=== PATIENT | female | born 1985 | race Caucasian/White ===

== ENCOUNTER 2021-12-22 10:11 | Outpatient (CLI) | payer OTHER, SELFPAY | END 2021-12-22 11:08 | disposition home or self-care (01) | LOC: LABOR 10:33 → OB 12-23 12:42 | PROVIDERS: PCP Student in an Organized Health Care Education/Training Program; Referring Provider Student in an Organized Health Care Education/Training Program; Visit Provider Student in an Organized Health Care Education/Training Program | DX: O48.0 Post-term pregnancy (principal); Z3A.40 40 weeks gestation of pregnancy | CPT/HCPCS: 59025; G0378; G0379 ==

== ENCOUNTER 2021-12-25 13:57 | Outpatient (CLI) | payer OTHER, SELFPAY | END 2021-12-25 14:45 | disposition home or self-care (01) | LOC: LABOR 14:25 → OB 12-26 09:38 | PROVIDERS: PCP Student in an Organized Health Care Education/Training Program; Referring Provider Student in an Organized Health Care Education/Training Program; Visit Provider Student in an Organized Health Care Education/Training Program | DX: O48.0 Post-term pregnancy (principal); Z3A.40 40 weeks gestation of pregnancy | CPT/HCPCS: 59025; G0378; G0379 ==

== ENCOUNTER → 2021-12-26 07:19 | Outpatient (CLI) | payer OTHER, SELFPAY ==
--- NOTE | 2021-12-26 | DI.US.S_ITS ---
PROCEDURE: US OB LIMITED INDICATIONS: POST DATES; BRADY OUTSIDE/PRIOR DATING DATA: Estimated date of delivery (MARYAN): 12/22/2021. TECHNIQUE: Real-time scanning was performed of the fetus, with image documentation. COMPARISON: None. FINDINGS: A single living intrauterine gestation is present. Presentation: Vertex. Placenta: Placental position is right fundal, without previa. Amniotic fluid index: No fluid visualized. Single deepest vertical pocket is not visualized. heart rate: 132 beats per minute. Maternal cervical canal: Not visualized. Clinically estimated gestational age: 40 weeks 4 days IMPRESSION: 1. Hill living intrauterine at 40 weeks 4 days. Vertex position. 2. No amniotic fluid is seen. Normal placenta. Results were called to Mirna Richards at 8:06 a.m. by the lithographic plate maker apprentice. Dictated by: Elgin Torrez M.D. on 12/26/2021 at 10:33 Approved by: Elgin Torrez M.D. on 12/26/2021 at 10:36
== END ==
PROVIDERS: PCP Student in an Organized Health Care Education/Training Program; Referring Provider Student in an Organized Health Care Education/Training Program; Visit Provider Student in an Organized Health Care Education/Training Program
DX: O48.0 Post-term pregnancy (principal); Z3A.40 40 weeks gestation of pregnancy
CPT/HCPCS: 76815

== ENCOUNTER 2021-12-26 11:36 | Outpatient (CLI) | payer OTHER, SELFPAY | END 2021-12-26 12:25 | disposition home or self-care (01) | LOC: LABOR 12:23 → OB 12-29 12:19 | PROVIDERS: PCP Student in an Organized Health Care Education/Training Program; Referring Provider Student in an Organized Health Care Education/Training Program; Visit Provider Student in an Organized Health Care Education/Training Program | DX: O48.0 Post-term pregnancy (principal); Z3A.40 40 weeks gestation of pregnancy | CPT/HCPCS: 59025; G0378; G0379 ==

== ENCOUNTER 2021-12-26 19:30 | Observation (INO) | payer OTHER, SELFPAY ==
--- NOTE | 2021-12-26 19:42 | P.TNLD_ITS ---
Visit Information Visit Information Date of evaluation: 12/26/21 Primary OB Provider: Neda Garcia Reason for Evaluation: Yes other Comments/Additional reasons for admission: Agueda Durán is a 36 year old at 40w4d with MARYAN of 12/22/21 per first trimester ultrasound. She presents with severe oligohydramnios with no fluid noted on her post-dates US today. Her course has been uncomplicated. LABS/IMAGING: ABO O positive, antibody negative on 05/21/21. Rubella immune. Hepatitis-B surface antigen negative. HIV, HSV 1 and 2 negative. GC/chlamydia negative. RPR negative. Varicella titer positive. Pap smear reportedly normal /in 2019. Urine culture negative on 05/21/2021. Hemoglobin/hematocrit 11.8/35.5 on 05/21/2021. Repeat hemoglobin/hematocrit pending. 1 hour Glucola 136, 3 hour negative. GBS negative on 11/27/21. Dating US: 10w0d, normal Anatomy Scan: normal OBSTETRIC HISTORY: GYNECOLOGICAL HISTORY: None PAST MEDICAL HISTORY: Healthy PAST SURGICAL HISTORY: None FAMILY HISTORY: No history of congenital defects. 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 Lives in [place] with . Supportive relationship. Very excited about the baby.
--- NOTE | 2021-12-26 20:05 | PM.OBHP.1 ---
OB HPI Date/Time Date of admission: 12/26/21 Date Patient Seen: 12/26/21 Time Patient Seen: 19:00 History of Present Condition Chief complaint: Narrative: Agueda Durán is a 36 year old at 40w4d with MARYAN of 12/22/21 per first trimester ultrasound. She presents with severe oligohydramnios with no fluid noted on her post-dates US today. NST x2 this week have been reactive and reassuring. AmniSure today was negative. Her course has been uncomplicated. LABS/IMAGING: ABO O positive, antibody negative on 05/21/21. Rubella immune. Hepatitis-B surface antigen negative. HIV, HSV 1 and 2 negative. GC/chlamydia negative. RPR negative. Varicella titer positive. Pap smear reportedly normal /in 2019. Urine culture negative on 05/21/2021. Hemoglobin/hematocrit 11.8/35.5 on 05/21/2021. Repeat hemoglobin/hematocrit pending. 1 hour Glucola 136, 3 hour negative. GBS negative on 11/27/21. Dating US: 10w0d, normal Anatomy Scan: normal OBSTETRIC HISTORY: GYNECOLOGICAL HISTORY: None PAST MEDICAL HISTORY: Healthy PAST SURGICAL HISTORY: None FAMILY HISTORY: No history of congenital defects. 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 Lives in [place] with . Supportive relationship. Very excited about the baby. Review of Systems Review of Systems Narrative: All remaining ROS were reviewed and negative except as addressed. OB Exam Narrative Exam Narrative: General: NAD Skin: Color unremarkable, no rash nor lesions HEENT: Neck supple with midline trachea Lungs: CTAB Heart: Normal rate, and regular rhythm, S1, S2 normal, no murmur, click, rub or gallop Abdomen: Gravid, soft, non-tender Extremities: No clubbbing, no edema, no cyanosis Pelvis: Normal female external genitalia Presentation: vertex Cervix: 3/50/-3 Monitoring: Variability: Moderate Baseline: 130 Accelerations: Present Decelerations: Present x1 with good recovery Contractions: Every 3-7 minutes Strength: Moderate Assessment and Plan Assessment and Plan Assessment and Plan narrative: 1. IUP at 40w4d 2. 3. Postdates 4. Severe oligohydramnios Plan: Secondary to severe oligohydramnios, patient requires immediate induction. Unfortunately, there is not adequate nursing support to proceed with induction at our hospital. Dr. Villafana has been contacted at [facility] and has kindly agreed to accept patient in transfer of care. Patient understands need for transport due to staffing constraints. Questions answered, appropriate consents will be signed. Transportation will be via ground.
--- NOTE | 2021-12-26 20:15 | PM.OBDS.1 ---
Discharge Providers Provider Date of admission: 12/26/21 19:30 Discharge Date: 12/26/21 Primary care physician: Neda Garcia MD Discharge provider: Neda Garcia MD Summary Hospital Course Date Patient Seen: 12/26/21 Time Patient Seen: 20:15 Diagnoses: 1.? IUP at 40w4d 2.? 3.? Postdates 4.? Severe oligohydramnios Hospital Course: Patient has had an unremarkable hospital course. She has been on continuous monitoring throughout her stay. heart rate baseline in the 130s. Initially, baby had a deceleration that resolved with position change. Secondary to severe oligohydramnios, patient requires immediate induction.? Unfortunately, there is not adequate nursing support to proceed with induction at our hospital.? Dr. Villafana has been contacted at [facility] and has kindly agreed to accept patient in transfer of care.? Patient understands need for transport due to staffing constraints.? Questions answered, appropriate consents will be signed.? Transportation will be via ground. Greater than 75 minutes from 19:00 to 20:45 was spent [id number] with greater than 50% of the time directed towards stabilizing patient during critical care transport. Status at Discharge Cognitive/behavioral status at discharge: at baseline, oriented Functional status at discharge: independent ambulation Overall status at discharge: patient is back to baseline Time Spent with Patient Time attestation: Total time spent providing and/or coordinating discharge services: 75 minutes Objective Labs Result Diagrams: 12/26/21 19:55 Exam Narrative Exam Narrative: Exam Narrative: General: ? NAD Skin: ? Color unremarkable, no rash nor lesions HEENT:? Neck supple with midline trachea Lungs: ? CTAB Heart: ? Normal rate, and regular rhythm, S1, S2 normal, no murmur, click, rub or gallop Abdomen:? Gravid, soft, non-tender Extremities:? No clubbbing, no edema, no cyanosis Pelvis:? Normal female external genitalia Presentation: vertex Cervix:? 3/50/-3 Monitoring: Variability:? Moderate Baseline:? 130 Accelerations:? Present Decelerations:? Present x1 with good recovery Contractions:? Every 3-7 minutes Strength:? Moderate Discharge Plan Discharge Plan Patient Disposition: [facility] Other facility: [facility] Under care of provider: Dr. Ileana Villafana Discharge Health Status Multidrug resistant organism: No MDRO Precautions: [place] Diet/Activity/Treatments Diet: Clear Liquid Activity: Ambulate as tolerated. Discharge Data Primary Care Provider: Neda Garcia Attending Provider: Neda Garcia
[2021-12-26 20:20] LABS: Add Manual Diff / Slide Review NO; Basophils Absolute Auto 100 /uL (0-100); Basophils Percent Auto 0.5 % (0-2); Eosinophils Absolute Auto 200 /uL (0-450); Eosinophils Percent Auto 1.9 % (2-4); Hematocrit 33.2 % (36-46); Hemoglobin 10.7 g/dL (12.0-16.0); Lymphocytes Absolute Auto 3000 /uL (1100-4500); Mean Corpuscular HGB Conc 32.3 % (30-36); Mean Corpuscular Hemoglobin 27.5 PG (26-34); Mean Corpuscular Volume 85.1 fL (80-100); Monocytes Absolute Auto 800 /uL (0-900); Monocytes Percent Auto 6.4 % (3-14); Neutrophils Absolute Auto 7900 /uL (1500-7000); Neutrophils Percent Auto 66.2 % (50-75); Platelet Count 248 X10^3/uL (150-400); Red Cell Distribution Width 14.8 % (11.6-14.8); White Blood Cell Count 11.8 X10^3/uL (4.5-11.0)
[2021-12-26 20:36] LABS: COVID19 -Nasal RAPID Negative (Negative)
== END 2021-12-26 21:00 | disposition short-term general hospital (02) ==
PROVIDERS: Admitting Provider Student in an Organized Health Care Education/Training Program; PCP Student in an Organized Health Care Education/Training Program; Referring Provider Student in an Organized Health Care Education/Training Program; Visit Provider Student in an Organized Health Care Education/Training Program
DX: O41.03X0 Oligohydramnios, third trimester, not applicable or unspecified (principal); O48.0 Post-term pregnancy; Z3A.40 40 weeks gestation of pregnancy; Z20.822 Contact with and (suspected) exposure to COVID-19
CPT/HCPCS: 59025; 59050; 76815; 85025; 86850; 86900; 86901; 87635; C9803; G0378; G0379

== ENCOUNTER → 2022-11-30 11:45 | Outpatient (CLI) | payer OTHER, SELFPAY ==
--- NOTE | 2022-11-30 11:47 | DI.US.S_ITS ---
PROCEDURE: US PELVIC COMPLETE INDICATIONS: RULE OUT MISCARRIAGE TECHNIQUE: Real-time scanning was performed of the pelvic organs, with image documentation. Additional endovaginal scanning was necessary due to incomplete visualization of the adnexal and endometrial structures by transabdominal scanning. COMPARISON: None. FINDINGS: Uterus: Uterus is anteverted and normal in size at 6.1 x 3.9 x 3.8 cm. The myometrium is homogeneous. The endometrium measures 6.5 mm combined thickness. No intrauterine identified. Ovaries: The right ovary measures 2.8 x 1.7 x 2.7 cm, with a calculated ovarian volume of 6.6 cc. The left ovary measures 2.4 x 2.3 x 2.8 cm, with a calculated ovarian volume of 7.9 cc. The ovaries have a normal sonographic appearance. Less than 12 follicles can be seen in each ovary. No adnexal masses are seen. Other: No pathologic free abdominal or pelvic fluid. 1. IMPRESSION: No intra-or extrauterine is identified. Differential considerations would include spontaneous , early intrauterine gestation as well as occult ectopic ; however there are no secondary signs for such. Recommend clinical correlation with serial beta-hCGs and/or followup sonographic imaging if indicated. We strive to produce accurate, complete, and clear reports of imaging services. To assist us in improving patient care, this report was composed using standard report templates and voice recognition software. Therefore, it may contain abnormal punctuation, insertions and/or omissions. Occasional wrong-word or sound-alike substitutions may occur. Though we review the report and make efforts to correct it, we do recommend that the report be read carefully in proper context to recognize any text inaccuracies. Dictated by: Sandip Darden [facility] Interpreted: Houston Flores MD on 11/30/2022 at 12:40 Transcribed by: SHAYNE on 11/30/2022 at 12:42 Approved by: Houston Flores M.D. on 11/30/2022 at 13:58
== END ==
PROVIDERS: PCP Family Medicine; Referring Provider Family Medicine; Visit Provider Family Medicine
DX: O36.80X0 Pregnancy with inconclusive fetal viability, not applicable or unspecified (principal)
CPT/HCPCS: 76856

== ENCOUNTER → 2023-07-20 06:54 | Outpatient (CLI) | payer OTHER, SELFPAY ==
--- NOTE | 2023-07-20 | DI.US.S_ITS ---
PROCEDURE: US OB <= 14 WEEKS FETUS INDICATIONS: SPOTTING IN FIRST TRIMESTER OUTSIDE/PRIOR DATING DATA: Last menstrual period (LMP): 05/14/2023 LMP-based estimated date of delivery (MARYAN): 02/18/2024 First dating scan (date and location): 07/20/2023 TECHNIQUE: Real-time scanning was performed of the fetus and maternal pelvic organs, with image documentation. Endovaginal scanning was also performed to better visualize the fetus and maternal ovaries. COMPARISON: None. FINDINGS: Intrauterine gestational sac is seen with yolk sac and pole. [place]-rump length is 0.7 cm, compatible with an estimated gestational age of 6 weeks 4 days (estimated gestational age from LMP is 9 weeks 4 days). No cardiac motion is seen. Maternal organs: A right ovarian 2.6 cm corpus luteum cyst is noted. IMPRESSION: Intrauterine is seen with no cardiac motion, consistent with early failure. Approved by: Hamilton Luna M.D. on 07/20/2023 at 10:38
== END ==
PROVIDERS: PCP Family Medicine; Referring Provider Obstetrics & Gynecology; Visit Provider Obstetrics & Gynecology
DX: O20.0 Threatened abortion (principal)
CPT/HCPCS: 76801; 76817

== ENCOUNTER 2023-07-21 13:44 | Emergency (ER) | payer OTHER, SELFPAY ==
[2023-07-21] VITALS (14 sets, daily range): BP systolic 100–116; BP diastolic 55–66; PULSE 67–85; RESP 15–24; TEMP 36.8; O2SAT 97–100; BMI 27.3
--- NOTE | 2023-07-21 13:51 | DI.US.S_ITS ---
PROCEDURE: US OB <= 14 WEEKS FETUS INDICATIONS: VAGINAL BLEEDING OUTSIDE/PRIOR DATING DATA: Last menstrual period (LMP): 05/14/23. LMP-based estimated date of delivery (MARYAN): 02/18/2024. First dating scan (date and location): 07/20/2023 at . Estimated date of delivery (MARYAN) from first dating scan: n.a. TECHNIQUE: Real-time scanning was performed of the fetus and maternal pelvic organs, with image documentation. Endovaginal scanning was also performed to better visualize the fetus and maternal ovaries. COMPARISON: [facility], OB <= 14 WEEKS FETUS, 07/20/2023, 7:01. FINDINGS: Embryo: No intrauterine gestational sac is identified. There is clot or products of conception in the lower uterine segment/cervix. Maternal organs: Right ovary measures 3.3 x 2.3 x 2.8 cm with an estimated volume of 10.8 cc. There is a complex cyst in the right ovary measuring 2.3 cm. Left ovary is not visualized. No pathological free-fluid. IMPRESSION: 1. Early failure. No intrauterine gestational sac. There is clot or products of conception in the area of lower uterine segment/cervix. We strive to produce accurate, complete, and clear reports of imaging services. To assist us in improving patient care, this report was composed using standard report templates and voice recognition software. Therefore, it may contain abnormal punctuation, insertions and/or omissions. Occasional wrong-word or sound-alike substitutions may occur. Though we review the report and make efforts to correct it, we do recommend that the report be read carefully in proper context to recognize any text inaccuracies. Dictated by: Pablo Fenton M.D. on 07/21/2023 at 15:50 Approved by: Pablo Fenton M.D. on 07/21/2023 at 15:58
[2023-07-21 14:07] LABS: Add Manual Diff / Slide Review NO; Basophils Absolute Auto 200 /uL (0-100); Basophils Percent Auto 1.1 % (0-2); Eosinophils Absolute Auto 900 /uL (0-450); Eosinophils Percent Auto 5.9 % (2-4); Hematocrit 30.2 % (36-46); Hemoglobin 10.1 g/dL (12.0-16.0); Lymphocytes Absolute Auto 3600 /uL (1100-4500); Lymphocytes Percent Auto 24.5 % (25-40); Mean Corpuscular HGB Conc 33.6 % (30-36); Mean Corpuscular Hemoglobin 28.2 PG (26-34); Mean Corpuscular Volume 83.8 fL (80-100); Monocytes Absolute Auto 700 /uL (0-900); Monocytes Percent Auto 4.6 % (3-14); Neutrophils Absolute Auto 9300 /uL (1500-7000); Neutrophils Percent Auto 63.9 % (50-75); Platelet Count 303 X10^3/uL (150-400); Red Cell Distribution Width 13.9 % (11.6-14.8); White Blood Cell Count 14.6 X10^3/uL (4.5-11.0)
[2023-07-21 14:34] LABS: HCG Quantitative /Beta subunit 7374.4 mIU/mL
[2023-07-21] MEDS: ACETAMINOPHEN 325 MG TABLET 975 MG PO (15:36)
--- NOTE | 2023-07-21 16:02 | ED_ITS ---
HPI - General Adult General Chief complaint: Vaginal Bleeding Stated complaint: 9 Wks Preg./Bleeding/Syncope/Poss. Miscarriage Time Seen by Provider: 07/21/23 13:51 Source: patient Mode of arrival: EMS History of Present Illness HPI narrative: Patient is a at approximately 8 weeks EGA. Started having spotting a couple days ago but that worsened to having rosalia vaginal bleeding today with multiple pads an hour. She also had a syncopal episode at home. She has had a miscarriage in the past and states she is passing clots and tissue. No fevers. Related Data Home Medications Medication Instructions Recorded Confirmed No Known Home Medications 04/06/22 04/06/22 Allergies Allergy/AdvReac Type Severity Reaction Status Date / Time No Known Drug Allergies Allergy Verified 07/21/23 13:51 Review of Systems Constitutional Constitutional: Reports system reviewed and no additional complaints, except as documented Cardiovascular Cardiovascular: Reports system reviewed and no additional complaints, except as documented Gastrointestinal Gastrointestinal: Reports system reviewed and no additional complaints, except as documented Genitourinary Genitourinary: Reports system reviewed and no additional complaints, except as documented Integumentary/Breasts Skin/Breast: Reports system reviewed and no additional complaints, except as documented Patient History Social History Smoking Status: Never smoker Smoking Status: Never smoker alcohol intake frequency: holidays/special occasions only Substance Use Type: does not use Exam Initial Vital Signs Initial Vital Signs: Vital Signs Temperature 98.3 F 07/21/23 13:39 Pulse Rate 67 07/21/23 13:39 Respiratory Rate 15 07/21/23 13:39 Blood Pressure 101/62 07/21/23 13:39 Pulse Oximetry 100 07/21/23 13:39 Oxygen Delivery Method Room Air 07/21/23 13:39 HENMT Head: normal to inspection and normocephalic Resp Effort & Inspection: normal respiratory effort Cardio Rate: regular rate GI Inspection: non-distended Skin General: no rashes or lesions noted Neuro General: patient alert, patient awake and moves all extremities Course Orders Ordered: ED Orders 07/21/23 13:51 US pelvic complete Stat 07/21/23 13:56 Complete Blood Count AUTO DIFF Stat HCG Quantitative /Beta subunit Stat 07/21/23 16:25 Hemoglobin and Hematocrit Stat Discontinued Medications Acetaminophen (Acetaminophen 325 Mg Tablet) 975 mg PO NOW ONE Stop: 07/21/23 15:33 Last Admin: 07/21/23 15:36 Dose: 975 mg Documented By: ISIDRO Vital Signs Vital signs: Vital Signs - 8 hr 07/21/23 13:39 07/21/23 13:48 07/21/23 13:49 Temperature 98.3 F Pulse Rate 67 Respiratory Rate 15 Blood Pressure 101/62 101/62 Pulse Oximetry 100 97 Oxygen Delivery Method Room Air 07/21/23 13:49 07/21/23 14:00 07/21/23 14:00 Temperature Pulse Rate 73 72 Respiratory Rate Blood Pressure 111/55 L Pulse Oximetry 100 100 Oxygen Delivery Method 07/21/23 14:28 07/21/23 15:31 07/21/23 15:52 Temperature Pulse Rate 75 76 Respiratory Rate Blood Pressure 112/57 L Pulse Oximetry 100 100 98 Oxygen Delivery Method 07/21/23 16:00 07/21/23 16:30 07/21/23 16:31 Temperature Pulse Rate 72 75 Respiratory Rate 17 20 Blood Pressure 116/57 L Pulse Oximetry 100 99 Oxygen Delivery Method 07/21/23 16:31 07/21/23 17:00 07/21/23 17:30 Temperature Pulse Rate 79 80 80 Respiratory Rate 24 18 15 Blood Pressure Pulse Oximetry 100 99 100 Oxygen Delivery Method 07/21/23 17:33 07/21/23 17:34 Temperature Pulse Rate 85 Respiratory Rate 23 Blood Pressure 100/66 Pulse Oximetry 100 Oxygen Delivery Method Medical Decision Making Medical Records Medical records reviewed: Yes I reviewed the patient's medical records. Lab Data Lab results reviewed: Yes I reviewed the patient's lab results. 07/21/23 16:25 Labs: Lab Results 07/21/23 07/21/23 07/21/23 Range/Units 13:56 13:56 16:25 WBC 14.6 H (4.5-11.0) X10^3/uL RBC 3.60 L (4.0-5.2) X10^6/uL Hgb 10.1 L 9.2 L (12.0-16.0) g/dL Hct 30.2 L 27.1 L (36-46) % MCV 83.8 (80-100) fL MCH 28.2 (26-34) PG MCHC 33.6 (30-36) % RDW 13.9 (11.6-14.8) % Plt Count 303 (150-400) X10^3/uL Neut % (Auto) 63.9 (50-75) % Lymph % (Auto) 24.5 L (25-40) % [place] % (Auto) 4.6 (3-14) % Eos % (Auto) 5.9 H (2-4) % Baso % (Auto) 1.1 (0-2) % Neut # (Auto) 9300 H (2317-5607) /uL Lymph # (Auto) 3600 (6335-0996) /uL [place] # (Auto) 700 (0-900) /uL Eos # (Auto) 900 H (0-450) /uL Baso # (Auto) 200 H (0-100) /uL HCG, Quant 7374.4 mIU/mL Imaging Data US - AUTO STRIPER: Radiologist's Impression: PROCEDURE:? US OB <= 14 WEEKS FETUS ? INDICATIONS:? VAGINAL BLEEDING ? OUTSIDE/PRIOR DATING DATA:? Last menstrual period (LMP):? 05/14/23.? LMP-based estimated date of delivery (MARYAN):? 02/18/2024.? First dating scan (date and location):? 07/20/2023 at .? Estimated date of delivery (MARYAN) from first dating scan:? n.a. ? ? TECHNIQUE:? Real-time scanning was performed of the fetus and maternal pelvic organs, with image documentation.? Endovaginal scanning was also performed to better visualize the fetus and maternal ovaries.? ? COMPARISON:? [facility], OB <= 14 WEEKS FETUS, 07/20/2023, 7:01. ? FINDINGS:? ? Embryo:? No intrauterine gestational sac is identified.? There is clot or p roducts of conception in the lower uterine segment/cervix. ? Maternal organs:? Right ovary measures 3.3 x 2.3 x 2.8 cm with an estimated volume of 10.8 cc.? There is a complex cyst in the right ovary measuring 2.3 cm. Left ovary is not visualized.? No pathological free-fluid. ? ? IMPRESSION:? ? 1. Early failure.? No intrauterine gestational sac.? There is clot or products of conception in the area of lower uterine segment/cervix. MDM Narrative Medical decision making narrative: Rh positive. Is having vaginal bleeding but has been improving since being here. H&H has dropped somewhat but this is not unexpected given the amount of bleeding that she is having. Patient stood without becoming lightheaded. Will discharge patient home with strict return precautions. Discharge Plan Departure Patient Disposition: Home Clinical Impression: Threatened miscarriage Instructions: Threatened Miscarriage Activity Restrictions/Additional Instructions: I would expect some continued bleeding over the next several hours or day or so. Recommend you contact your OB provider for follow-up. Return to the emergency department for new or worsening symptoms. Prescriptions: No Action No Known Home Medications Referrals: Jessica De Paz MD [Primary Care Provider] - Stand Alone Forms: Patient Portal/API
[2023-07-21 16:35] LABS: Hematocrit 27.1 % (36-46); Hemoglobin 9.2 g/dL (12.0-16.0)
== END 2023-07-21 18:29 | disposition home or self-care (01) ==
PROVIDERS: Emergency Provider Emergency Medicine; PCP Family Medicine
DX: O20.0 Threatened abortion (principal); Z3A.08 8 weeks gestation of pregnancy
CPT/HCPCS: 36415; 76830; 76856; 84702; 85014; 85018; 85025; 93975; 99283; 99284

== ENCOUNTER → 2024-11-30 09:18 | Outpatient (CLI) | payer OTHER, SELFPAY ==
[2024-11-30 10:05] LABS: Influenza A - CEPHEID Flu A NEGATIVE (NEGATIVE); Influenza B - CEPHEID Flu B NEGATIVE (NEGATIVE); Respiratory Syncytial Virus Negative (Negative)
[2024-11-30 10:06] LABS: COVID-19 CEPHEID 4-PLEX PCR Negative (Negative)
== END ==
PROVIDERS: PCP Family Medicine; Visit Provider Physician Assistant
DX: R05.1 Acute cough (principal)
CPT/HCPCS: 0241U

== ENCOUNTER 2024-12-03 07:46 | Inpatient (IN) | payer OTHER, SELFPAY ==
[2024-12-03] VITALS (22 sets, daily range): BP systolic 108–145; BP diastolic 55–80; PULSE 94–113; RESP 18–28; TEMP 37.1–37.3; O2SAT 86–97; BMI 27.3
--- NOTE | 2024-12-03 07:55 | ED.GENADULT ---
HPI - General Adult General Chief complaint: Upper Respiratory Symptoms Stated complaint: been sick for wk, fever, body aches, cough, dizzy Time Seen by Provider: 12/03/24 07:48 Source: patient, RN notes reviewed and old records reviewed Mode of arrival: Ambulatory Limitations: no limitations History of Present Illness HPI narrative: 39-year-old female no reported medical issues who presents with complaint of fevers, nasal congestion and cough, shortness of breath, myalgias for the past 7 days. Patient states symptoms started mostly cold cough congestion myalgias she had traveled to [place] at the beginning of the week has had persistent symptoms and states increased shortness of breath over the last several days. States she has had persistent fevers has been taking ibuprofen fairly regularly but would not taking it we will have fevers at night sweats. States she has had a productive cough usually clear but sometimes with yellow discoloration. No chest pain or pressure. She feels sort of a tickle and shortness of breath sort of in her upper chest. Patient states she does not feel tight or wheezy. She does feel more short of breath particularly with exertion. She would nausea beginning of the week but none persisting. No vomiting. She has been able to eat and drink normally. She states no diarrhea or constipation. No dysuria urgency or frequency. No new swelling of extremities. No rash or skin changes. States no daily medications. No known drug allergies. States only prior surgery was . No tobacco, regular alcohol or recreational drug use. Related Data Home Medications Medication Instructions Recorded Confirmed acetaminophen 325 mg tablet 325 mg PO QID PRN Pain (Scale 12/03/24 12/03/24 Score 1-3) ibuprofen 200 mg tablet 200 mg PO Q6H PRN Pain, Mild 12/03/24 12/03/24 Previous Rx's Medication Instructions Recorded benzonatate 200 mg capsule 200 mg PO TID PRN cough #30 caps 11/30/24 guaifenesin 1,200 mg tablet, 1,200 mg PO Q12H #30 tabs 11/30/24 extended release 12 hr Allergies Allergy/AdvReac Type Severity Reaction Status Date / Time No Known Drug Allergies Allergy Verified 11/30/24 09:17 Review of Systems Review of Systems ROS Unobtainable: All systems reviewed & are unremarkable except as noted in HPI and below Patient History Social History household members: spouse and children Smoking Status: Never smoker Smoking Status: Never smoker alcohol intake frequency: holidays/special occasions only Exam Narrative Exam Narrative: GENERAL: Alert and oriented x three, female in mild distress HEENT: Head normocephalic, atraumatic, EOMI, pupils reactive, face symmetric, moist mucous membranes NECK: Supple, full range of motion CARDIOVASCULAR: Regular rate and rhythm without murmurs, rubs or gallops. No JVD. No edema bilateral lower extremities. RESPIRATORY: Breath sounds equal bilaterally, no wheezes rales or rhonchi. Patient does sound coarse bilaterally. No tachypnea. ABDOMEN: Soft, nontender. Normoactive bowel sounds all 4 quadrants. No guarding or rebound, rigidity, no mass : No CVA tenderness EXTREMITIES: Normal range of motion, no clubbing or edema. Neurovascularly intact NEUROLOGICAL: Cranial nerves II through XII grossly intact. Moving all extremities SKIN: Warm, dry, no petechiae, no rashes or lesions. Initial Vital Signs Initial Vital Signs: Vital Signs Pulse Rate 113 H 12/03/24 07:51 Pulse Oximetry 87 L 12/03/24 07:51 Oxygen Delivery Method Room Air 12/03/24 07:51 Course Orders Ordered: Acetaminophen (Acetaminophen 325 Mg Tablet) 650 mg PO Q6H PRN PRN Reason: Fever/Mild Pain (1-3) Benzonatate (Benzonatate 100 Mg Capsule) 200 mg PO TID PRN PRN Reason: cough Last Admin: 12/03/24 13:38 Dose: 200 mg Documented By: LDV Enoxaparin Sodium (Enoxaparin 40 Mg/0.4 Ml Syringe) 40 mg SUBCUT DAILY [facility] Last Admin: 12/03/24 14:00 Dose: Not Given Documented By: LDV Guaifenesin (Guaifenesin Er 600 Mg Tab) 1,200 mg PO Q12H [facility] Last Admin: 12/03/24 13:38 Dose: 1,200 mg Documented By: LDV Ceftriaxone Sodium 1,000 mg/ (Sodium Chloride) 100 mls @ 200 mls/hr IV Q24H YEVGENIY Azithromycin 500 mg/ Dextrose 250 mls @ 250 mls/hr IV Q24H YEVGENIY Lorazepam (Lorazepam 0.5 Mg Tablet) 0.5 mg PO Q4HR PRN PRN Reason: Anxiety Last Admin: 12/03/24 13:46 Dose: 0.5 mg Documented By: LDV Naloxone HCl (Naloxone 0.4 Mg/Ml Vial) 0.2 mg IV Q2MIN PRN PRN Reason: Opiate Reversal Ondansetron HCl (Ondansetron 4 Mg/2 Ml Inj) 4 mg IV Q8HR PRN PRN Reason: Nausea And Vomiting Discontinued Medications Azithromycin (Azithromycin 250 Mg Tablet) 500 mg PO NOW ONE Stop: 12/03/24 09:00 Last Admin: 12/03/24 09:14 Dose: 500 mg Documented By: NADER Ceftriaxone Sodium 2,000 mg/ (Sodium Chloride) 100 mls @ 200 mls/hr IV NOW ONE Stop: 12/03/24 09:00 Last Infusion: 12/03/24 10:06 Dose: Infused Documented By: Admin: 12/03/24 09:14 Dose: 200 mls/hr Documented By: NADER Vital Signs Vital signs: Vital Signs - 8 hr 12/03/24 10:30 12/03/24 10:30 12/03/24 10:48 Pulse Rate 101 H 111 H Blood Pressure 120/55 L Pulse Oximetry 95 95 Medical Decision Making Lab Data 12/03/24 08:05 12/03/24 08:05 Labs: Lab Results 12/03/24 12/03/24 Range/Units 08:05 10:44 WBC 10.4 (4.5-11.0) X10^3/uL RBC 4.26 (4.0-5.2) X10^6/uL Hgb 11.9 L (12.0-16.0) g/dL Hct 35.3 L (36-46) % MCV 82.9 (80-100) fL MCH 28.0 (26-34) PG MCHC 33.8 (30-36) % RDW 13.6 (11.6-14.8) % Plt Count 374 (150-400) X10^3/uL Neut % (Auto) 78.7 H (50-75) % Lymph % (Auto) 10.7 L (25-40) % Gulf % (Auto) 5.5 (3-14) % Eos % (Auto) 4.7 H (2-4) % Baso % (Auto) 0.4 (0-2) % Neut # (Auto) 8200 H (0601-7505) /uL Lymph # (Auto) 1100 (5221-5127) /uL Gulf # (Auto) 600 (0-900) /uL Eos # (Auto) 500 H (0-450) /uL Baso # (Auto) 0 (0-100) /uL D-Dimer 1259 H (<500) ng/ml Sodium 137 (137-145) mmol/L Potassium 3.8 (3.4-5.1) mmol/L Chloride 101 (98-107) mmol/L Carbon Dioxide 27 (22-32) mmol/L BUN 10 (7-17) mg/dL Creatinine 0.71 (0.52-1.04) mg/dL Estimated GFR > 60 (>60) mL/min BUN/Creatinine Ratio 14.1 (6-22) Glucose 123 H (70-100) mg/dL Lactate 0.8 (0.7-2.1) mmol/L Calcium 8.7 (8.4-10.2) mg/dL Total Bilirubin 0.4 (0.2-1.3) mg/dL AST 35 (14-36) IU/L ALT 28 (<35) IU/L Alkaline Phosphatase 65 (38-126) U/L Total Creatine Kinase 54 (30-135) U/L Troponin I < 0.012 (0.01-0.034) ng/mL Total Protein 7.4 (6.3-8.2) g/dL Albumin 3.8 (3.5-5.0) g/dL Globulin 3.6 (1.7-4.1) g/dL Albumin/Globulin Ratio 1.1 (1.0-2.8) Procalcitonin 0.050 (<0.5) ng/mL Urine Test Negative (Negative) Imaging Data Chest x-ray: Radiologist's Impression: [address] [address] XRay Report Signed Patient: Agueda Durán MR#: [id number] : 1985 Acct:[id number] Age/Sex: 39 / F Date of Service: 12/03/24 Loc: ED Accession Number: [id number] Procedure: XR chest 1V Ordering Provider: Rand Walls D.O. PROCEDURE: XR CHEST 1V INDICATIONS: cough, fever, shortness of breath x 1 week not improving TECHNIQUE: One view of the chest was acquired. COMPARISON: None. FINDINGS: Surgical changes and devices: None. Lungs and pleura: Patchy bilateral pulmonary infiltrates. No pleural effusions or pneumothorax. Mediastinum: Mediastinal contours appear normal. Heart size is normal. Bones and chest wall: No suspicious bony lesions. Overlying soft tissues appear unremarkable. IMPRESSION: Patchy bilateral pneumonia. Dictated by: Mil Dozier M.D. on 12/03/2024 at 9:08 Approved by: Mil Dozier M.D. on 12/03/2024 at 9:09 [facility] Narrative Medical decision making narrative: 39-year-old female tachycardic, tachypneic after walking to the room but not on exam after being seated for some time. Patient did have swab of COVID/influenza/RSV which was negative on 11/30/2024 at the walk-in clinic. Suspect patient may be developing pneumonia but did have recent long-distance travel. She appears to have more infectious symptoms but D-dimer was added on to workup. Labs show white count of 10.4 hemoglobin 11.9 platelets of 374, patient's hemoglobin is improved from July of 2023. Dimer was obtained as patient had recent travel symptoms started after that is 1259 because of patient's travel although she does sounds infectious symptoms started shortly thereafter flight to [place] angio was obtained. Electrolytes, BUN creatinine are all appropriate glucose is 123 lactate 0.8 LFTs are negative troponins less than 0.012 with a procalcitonin 0.05 Chest x-ray preliminary chest x-ray shows some opacities consistent with pneumonia. Radiology read is patchy bilateral pneumonia. CT angio shows no pulmonary emboli bilateral multifocal pneumonia. Patient had flu/COVID/RSV on 11/30/2024 which was negative. Patient's chest x-ray appears to have infection patient was started on community-acquired pneumonia coverage with Rocephin and a dose of oral azithromycin. Patient has had dips down to 86% occasionally even while awake. Was 88% initially with ambulation into the room but had improved to 92% with a about 60 seconds. Patient has had occasional drops into the high to mid 80s while here in the department. Patient primary care is listed as Dr. 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 Garcia prior to this. 0918, [employer] Dr[address] Adair [address] Adair he accepts for inpatient did review that she has seen Dr. Garcia in the past but has not ever seen Dr. De Paz. Discharge Plan Departure Patient Disposition: Admitted As Inpatient Clinical Impression: Bilateral pneumonia Admit Date/Time: 12/03/24 10:49 Admit Provider: Eulogio Adair V
--- NOTE | 2024-12-03 08:02 | DI.RAD.S_ITS ---
PROCEDURE: XR CHEST 1V INDICATIONS: cough, fever, shortness of breath x 1 week not improving TECHNIQUE: One view of the chest was acquired. COMPARISON: None. FINDINGS: Surgical changes and devices: None. Lungs and pleura: Patchy bilateral pulmonary infiltrates. No pleural effusions or pneumothorax. Mediastinum: Mediastinal contours appear normal. Heart size is normal. Bones and chest wall: No suspicious bony lesions. Overlying soft tissues appear unremarkable. IMPRESSION: Patchy bilateral pneumonia. Dictated by: Mil Dozier M.D. on 12/03/2024 at 9:08 Approved by: Mil Dozier M.D. on 12/03/2024 at 9:09
[2024-12-03 08:32] LABS: Add Manual Diff / Slide Review NO; Basophils Absolute Auto 0 /uL (0-100); Basophils Percent Auto 0.4 % (0-2); Eosinophils Absolute Auto 500 /uL (0-450); Eosinophils Percent Auto 4.7 % (2-4); Hematocrit 35.3 % (36-46); Hemoglobin 11.9 g/dL (12.0-16.0); Lymphocytes Absolute Auto 1100 /uL (1100-4500); Lymphocytes Percent Auto 10.7 % (25-40); Mean Corpuscular HGB Conc 33.8 % (30-36); Mean Corpuscular Volume 82.9 fL (80-100); Monocytes Absolute Auto 600 /uL (0-900); Monocytes Percent Auto 5.5 % (3-14); Neutrophils Absolute Auto 8200 /uL (1500-7000); Neutrophils Percent Auto 78.7 % (50-75); Platelet Count 374 X10^3/uL (150-400); Red Blood Cell Count 4.26 X10^6/uL (4.0-5.2); Red Cell Distribution Width 13.6 % (11.6-14.8); White Blood Cell Count 10.4 X10^3/uL (4.5-11.0)
[2024-12-03 08:35] LABS: Lactate (Lactic Acid) 0.8 mmol/L (0.7-2.1)
[2024-12-03 08:37] LABS: Alanine Aminotransferase 28 IU/L (<35); Albumin 3.8 g/dL (3.5-5.0); Albumin Globulin Ratio 1.1 (1.0-2.8); Alkaline Phosphatase 65 U/L (38-126); Aspartate Aminotransferase 35 IU/L (14-36); BUN Creatinine Ratio 14.1 (6-22); Bilirubin Total 0.4 mg/dL (0.2-1.3); Blood Urea Nitrogen 10 mg/dL (7-17); Calcium 8.7 mg/dL (8.4-10.2); Carbon Dioxide 27 mmol/L (22-32); Chloride 101 mmol/L (98-107); Creatine Kinase 54 U/L (30-135); Estimated Glomerular Filt Rate > 60 mL/min (>60); Globulin 3.6 g/dL (1.7-4.1); Glucose 123 mg/dL (70-100); HEMOLYSIS < 15 (0-50); Potassium 3.8 mmol/L (3.4-5.1); Sodium 137 mmol/L (137-145); Total Protein 7.4 g/dL (6.3-8.2)
[2024-12-03 08:48] LABS: Troponin I < 0.012 ng/mL (0.01-0.034)
[2024-12-03 08:49] LABS: D Dimer 1259 ng/ml (<500)
--- NOTE | 2024-12-03 08:56 | DI.CT.S_ITS ---
PROCEDURE: CT ANGIO CHEST PE PROTOCOL INDICATIONS: fever, shortness of breath, elevated dimer, recent travel TECHNIQUE: After the administration of intravenous contrast, 2 mm thick sections acquired from the pulmonary apices to the posterior costophrenic angles. 3-dimensional maximum intensity projection (MIP) coronal and sagittal reformats were then acquired through the thorax. For radiation dose reduction, the following was used: automated exposure control, adjustment of mA and/or kV according to patient size. COMPARISON: [facility], CR, XR CHEST 1V, 12/03/2024, 8:23. FINDINGS: Image quality: Diagnostic. Pulmonary arteries: Pulmonary arteries are normal in size, and demonstrate no intraluminal filling defects to suggest central pulmonary embolism. Lower Neck: No enlarged lymph nodes. Thyroid: No thyroid nodules which require sonographic follow up, per consensus guidelines. Axillae: No enlarged lymph nodes. Chest Wall: Unremarkable. Bones: Unremarkable. Lungs and Pleura: Patchy bilateral pulmonary infiltrates noted particularly in the right middle and lingular left upper lobe Heart: Heart size is normal. No pericardial effusion. Thoracic Vessels: No aortic aneurysm. Mediastinum and Antonia: No enlarged lymph nodes. Esophagus: No wall thickening. No hiatal hernia. Upper Abdomen: Visualized upper abdomen solid organs and bowel loops appear normal. IMPRESSION: No pulmonary embolus. Bilateral multifocal pneumonia Approved by: Oleg Forde M.D. on 12/03/2024 at 8:40
[2024-12-03] MEDS: cefTRIAXone 2,000 MG in SODIUM CHLORIDE 0.9% 100 ML 200 MG IV (09:14)
[2024-12-03] MEDS: AZITHROMYCIN 250 MG TABLET 500 MG PO (09:14)
--- NOTE | 2024-12-03 09:35 | PC.NURSE ---
Patient had a persistently low sat of 86%. This RN placed patient on 2L of oxygen. Provider notified.
--- NOTE | 2024-12-03 12:41 | PM.HP.IH.1 ---
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 F, and diffuse body aches. She developed nausea and vomiting today with loose stools. She had developed symptoms shortly after a trip to [facility] to visit her sister. She was seen in the walk-in clinic on 11/30/2024 after returning with negative COVID, flu and RSV swabs, diagnosed with viral infection, and prescribed benzonatate and guaifenesin ER. She notes she was accidentally taking Claritin instead of Tylenol for fever, but feels that the fevers did improve regardless. Despite symptomatic care she continues to feel worse with ongoing fevers and presented the emergency department where she was found to have pulmonary infiltrates consistent with pneumonia, and was hypoxic with oxygen saturation following 86% on room air. She is otherwise healthy. She had a recent heavy menstrual period and wondered if she might have had a miscarriage, noting she has experienced miscarriage in the past. She denies tobacco, alcohol or drug use. She is not aware of any sick contacts other than that associated with traveling. Per 3-year-old son has pinkeye presently. She is seen with her Brandon at bedside. [facility] Social History household members: spouse and children Smoking Status: Never smoker Meds Home Medications and Allergies Home Medications Medication Instructions Recorded Confirmed Type benzonatate 200 mg capsule 200 mg PO TID PRN cough #30 caps 11/30/24 12/03/24 Rx guaifenesin 1,200 mg tablet, 1,200 mg PO Q12H #30 tabs 11/30/24 12/03/24 Rx extended release 12 hr acetaminophen 325 mg tablet 325 mg PO QID PRN Pain (Scale 12/03/24 12/03/24 History Score 1-3) ibuprofen 200 mg tablet 200 mg PO Q6H PRN Pain, Mild 12/03/24 12/03/24 History Allergies Allergy/AdvReac Type Severity Reaction Status Date / Time No Known Drug Allergies Allergy Verified 11/30/24 09:17 Review of Systems Review of Systems ROS: Yes All systems reviewed with the patient and are negative except as otherwise documented Exam Vital Signs (past 8 hours): - 12/03/24 07:51 12/03/24 07:52 12/03/24 07:52 Temperature Pulse Rate 113 H 113 H Respiratory Rate Blood Pressure 138/80 Pulse Oximetry 87 L 87 L Oxygen Delivery Method Room Air Room Air Oxygen Flow Rate 12/03/24 07:59 12/03/24 08:00 12/03/24 08:00 Temperature 98.9 F Pulse Rate 111 H 111 H Respiratory Rate 28 H Blood Pressure 138/80 145/78 H Pulse Oximetry 92 92 Oxygen Delivery Method Room Air Room Air Oxygen Flow Rate 12/03/24 08:15 12/03/24 08:30 12/03/24 08:30 Temperature Pulse Rate 109 H 101 H Respiratory Rate Blood Pressure 109/71 Pulse Oximetry 92 90 L Oxygen Delivery Method Room Air Oxygen Flow Rate 12/03/24 08:45 12/03/24 08:45 12/03/24 09:00 Temperature Pulse Rate 100 H 94 H Respiratory Rate Blood Pressure 113/66 Pulse Oximetry 89 L 89 L Oxygen Delivery Method Room Air Room Air Oxygen Flow Rate 12/03/24 09:00 12/03/24 09:17 12/03/24 09:30 Temperature Pulse Rate 96 H 99 H Respiratory Rate Blood Pressure 110/63 Pulse Oximetry 86 L 92 Oxygen Delivery Method Room Air Oxygen Flow Rate 12/03/24 09:31 12/03/24 09:31 12/03/24 09:45 Temperature Pulse Rate 96 H 100 H Respiratory Rate Blood Pressure 125/59 L Pulse Oximetry 92 96 Oxygen Delivery Method Nasal Cannula Nasal Cannula Oxygen Flow Rate 2 12/03/24 09:45 12/03/24 10:00 12/03/24 10:00 Temperature Pulse Rate 98 H Respiratory Rate Blood Pressure 111/63 115/66 Pulse Oximetry 96 Oxygen Delivery Method Nasal Cannula Oxygen Flow Rate 2 12/03/24 10:15 12/03/24 10:30 12/03/24 10:30 Temperature Pulse Rate 96 H 101 H Respiratory Rate Blood Pressure 120/55 L Pulse Oximetry 93 95 Oxygen Delivery Method Nasal Cannula Oxygen Flow Rate 2 12/03/24 10:48 12/03/24 10:50 12/03/24 10:50 Temperature Pulse Rate 111 H 108 H Respiratory Rate Blood Pressure 118/67 Pulse Oximetry 95 95 Oxygen Delivery Method Oxygen Flow Rate 12/03/24 11:00 12/03/24 11:01 12/03/24 11:01 Temperature Pulse Rate 100 H 101 H Respiratory Rate Blood Pressure 130/63 Pulse Oximetry 95 95 Oxygen Delivery Method Oxygen Flow Rate 12/03/24 11:58 Temperature Pulse Rate Respiratory Rate Blood Pressure Pulse Oximetry Oxygen Delivery Method Nasal Cannula Oxygen Flow Rate Oxygen Delivery Method Nasal Cannula Oxygen Flow Rate 2 Narrative Exam Narrative: GENERAL: This is a well-nourished, well-developed patient, in no apparent distress, appears fatigued, nasal cannula oxygen in place. HEAD: Atraumatic. Normocephalic. No temporal or scalp tenderness. EYES: Pupils equal round and reactive. Extraocular motions intact. No scleral icterus. No injection or drainage. ENT: Mucous membranes pink and moist. NECK: Trachea midline. No JVD, bruits or lymphadenopathy. Supple, nontender, no meningeal signs. CARDIOVASCULAR: Regular rate and rhythm without murmurs, gallops, or rubs. RESPIRATORY: Decreased breath sounds bilateral bases, increased right mid lung field coarse crackles. No wheezing or rhonchi. GASTROINTESTINAL: Abdomen soft, non-tender, nondistended. EXTREMITIES: No clubbing, cyanosis, or edema. BACK: Nontender without deformity or crepitance. No flank tenderness. NEUROLOGIC: Alert, oriented, speech fluent, full upper and lower motor strength, no focal deficits evident. DERMATOLOGIC: No rashes or skin lesions. Objective Imaging Chest x-ray: Radiologist's impression: Patchy bilateral pneumonia. CT scan - chest: Radiologist's impression: No pulmonary embolus. Bilateral multifocal pneumonia Labs 12/03/24 08:05 12/03/24 08:05 Labs: Laboratory Results - last 24 hr 12/03/24 08:05 WBC 10.4 RBC 4.26 Hgb 11.9 L Hct 35.3 L MCV 82.9 MCH 28.0 MCHC 33.8 RDW 13.6 Plt Count 374 Neut % (Auto) 78.7 H Lymph % (Auto) 10.7 L Yancey % (Auto) 5.5 Eos % (Auto) 4.7 H Baso % (Auto) 0.4 Neut # (Auto) 8200 H Lymph # (Auto) 1100 Yancey # (Auto) 600 Eos # (Auto) 500 H Baso # (Auto) 0 D-Dimer 1259 H Sodium 137 Potassium 3.8 Chloride 101 Carbon Dioxide 27 BUN 10 Creatinine 0.71 Estimated GFR > 60 BUN/Creatinine Ratio 14.1 Glucose 123 H Lactate 0.8 Calcium 8.7 Total Bilirubin 0.4 AST 35 ALT 28 Alkaline Phosphatase 65 Total Creatine Kinase 54 Troponin I < 0.012 Total Protein 7.4 Albumin 3.8 Globulin 3.6 Albumin/Globulin Ratio 1.1 Procalcitonin 0.050 Assessment & Plan Assessment & Plan narrative: 1. Community-acquired pneumonia. Suspect streptococcal pneumonia given lobar nature on CT imaging. Continue IV ceftriaxone and azithromycin. Follow cultures. Treat symptomatically. 2. At acute hypoxic respiratory failure due to 1. Continue supplemental oxygen. 3. History of miscarriage. Obtain urine test. 4. DVT prophylaxis: Subcutaneous enoxaparin. Note recent travel history. 5. Code status: Full code. Her surrogate decision maker is her Chris. Plan: -admit to inpatient status -ceftriaxone and azithromycin IV daily -supplemental oxygen, maintain oxygen saturation greater than equal to 92% -symptomatic care, anxiolytics, mucolytics -urine testing line -enoxaparin 40 mg daily The patient is admitted inpatient status as he will require at least 2 midnights of inpatient level care. Quality MIPS - Admit I confirm the patient?s Advance Care Plan is present, Code status is documented, Surrogate decision maker is in patient?s record [If Yes, STOP here]: Yes [facility] - Meds 'Current medications' to include all prescriptions, [id number] products, herbals, cannabis/cannabidiol products, and vitamin/mineral/dietary (nutritional) supplements. I have utilized all available resources to obtain, update, or review the patient?s current medications. [If Yes, STOP here]: Yes [facility] Disaster Recovery Coordinator Document charge(s): No Charge Codes Initial inpatient/observation care: 26342
[2024-12-03 13:36] LABS: Pregnancy Test Urine Negative (Negative)
[2024-12-03] MEDS: BENZONATATE 100 MG CAPSULE 200 MG PO ×2 (13:38→19:50)
[2024-12-03] MEDS: guaiFENesin ER 600 MG TAB 1200 MG PO (13:38)
[2024-12-03] MEDS: LORazepam 0.5 MG TABLET PO ×2 (13:46→19:50)
--- NOTE | 2024-12-03 16:27 | PC.NURSE ---
Called RT, asked to give pt IS or Pickle.
--- NOTE | 2024-12-03 23:49 | PC.NURSE ---
Assume care of patient at 12/03/23 [id number].
[2024-12-04] VITALS (8 sets, daily range): BP systolic 100–108; BP diastolic 57–72; PULSE 83–104; RESP 16–18; TEMP 36.2–37.1; O2SAT 93–96
[2024-12-04] MEDS: ACETAMINOPHEN 325 MG TABLET 650 MG PO (09:10)
[2024-12-04] MEDS: cefTRIAXone 1,000 MG in SODIUM CHLORIDE 0.9% 100 ML 200 MG IV (09:10)
[2024-12-04] MEDS: AZITHROMYCIN 500 MG in DEXTROSE 5% IN WATER 250 ML 250 MG IV (09:11)
[2024-12-04] MEDS: ENOXAPARIN 40 MG/0.4 ML SYRINGE SUBCUT (09:11)
[2024-12-04] MEDS: SODIUM CHLORIDE 0.9% FLUSH 10 ML IV ×2 (09:12→20:39)
--- NOTE | 2024-12-04 11:53 | PC.NURSE ---
Addendum entered by Teresa Pham R.N. 12/04/24 19:19: trialed patient on room air and she went down to 88%, put back on 1L and back up to 90s. She is asleep now. Original Note: Patient is independent in the room, she had a shower this morning. R.ac iv hurting patient. Area is red around the insertion site and was causing her discomfort with ivf. Will take this out, patient has another iv to her l.hand that is infusing iv antibiotics well. She is resting in bed now. Lung sounds clear upone auscultation, and patient is on 2L of O2 satting in the upper 90s.
[2024-12-04] MEDS: guaiFENesin ER 600 MG TAB 1200 MG PO (12:55)
--- NOTE | 2024-12-04 15:48 | CM.DANOTE ---
Initial DCP Assessment Visit Note Reviewed EMR and team rounds for status updates. Met with pt at bedside to introduce self and role, pt was found to be alert/oriented, resting quietly in bed. 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 Her spouse will transport her home once she's medically cleared for d/c. Payor: [facility] PCP: Dr. De Paz Pt is a 39 year-old F who presented to the ED yesterday morning with c/o fevers, congestion/cough, SOB, and feeling overall unwell for the last 7-days. She was started on IV ABO's, fluids, and O2, currently at 2L. Blood cultures came back positive for strepcoccal pneumonia, bilaterally. Plan is home w/family once medically stable for d/c. DCP will continue to monitor for any further evolving d/c needs, however no CM needs are identified at this time. Discharge Planning/Care Management CM Discharge Assessment Start: 12/04/24 15:46 Freq: Status: Active Protocol: Document 12/04/24 15:47 DPL (Rec: 12/04/24 15:48 DPL [id number]) Discharge Planning Assessment Assigned Oxyacetylene Burner LAYO Osuna Advance Directives? No History Provided By Patient,Significant Other Has Patient been admitted in last 30 No days? Prior Living Arrangements House Household Members spouse,children Type of transporation used prior to Drives own vehicle admit Independent with ADL's Yes Is patient alert and oriented? Yes Comment N/A Caregiver for Another Yes: children/family Comment N/A Comment N/A Comment No identified home d/c needs at this time. Barriers to Discharge No Discharge Plan Home Transportation Arrangement Spouse Referrals Initiated None needed Whiteboard Updated in Patient Room with Yes name and ext. # of Oxyacetylene Burner Review Status In Process Please Provide Date Initial DC 12/04/24 Assessment Was Performed
[2024-12-04] MEDS: DOXYCYCLINE HYCLATE 100 MG TABLET PO (20:37)
[2024-12-04] MEDS: BENZONATATE 100 MG CAPSULE 200 MG PO (20:37)
[2024-12-04] MEDS: LORazepam 0.5 MG TABLET PO (20:38)
[2024-12-05 01:16] VITALS: PULSE 91; O2SAT 92
[2024-12-05 03:26] VITALS: O2SAT 94
[2024-12-05 04:00] VITALS: BP 102/64; PULSE 87; RESP 18; TEMP 35.7; O2SAT 96
[2024-12-05] MEDS: cefTRIAXone 1,000 MG in SODIUM CHLORIDE 0.9% 100 ML 200 MG IV (08:37)
[2024-12-05] MEDS: ENOXAPARIN 40 MG/0.4 ML SYRINGE SUBCUT (08:38)
[2024-12-05] MEDS: ACETAMINOPHEN 325 MG TABLET 650 MG PO (08:38)
[2024-12-05] MEDS: DOXYCYCLINE HYCLATE 100 MG TABLET PO (08:38)
[2024-12-05 12:00] VITALS: BP 102/63; PULSE 82; RESP 14; TEMP 36.1; O2SAT 94
--- NOTE | 2024-12-05 12:55 | PC.NURSE ---
Pt has been resting, she is on room air now and sats were 95%. She will most likely discharge home today. BS cta, decreased in the bases.
--- NOTE | 2024-12-05 14:40 | PM.DS.1 ---
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 F, and diffuse body aches. She developed nausea and vomiting today with loose stools. She had developed symptoms shortly after a trip to [facility] to visit her sister. She was seen in the walk-in clinic on 11/30/2024 after returning with negative COVID, flu and RSV swabs, diagnosed with viral infection, and prescribed benzonatate and guaifenesin ER. She notes she was accidentally taking Claritin instead of Tylenol for fever, but feels that the fevers did improve regardless. Despite symptomatic care she continues to feel worse with ongoing fevers and presented the emergency department where she was found to have pulmonary infiltrates consistent with pneumonia, and was hypoxic with oxygen saturation following 86% on room air. She is otherwise healthy. She had a recent heavy menstrual period and wondered if she might have had a miscarriage, noting she has experienced miscarriage in the past. She denies tobacco, alcohol or drug use. She is not aware of any sick contacts other than that associated with traveling. Per 3-year-old son has allie presently. She is seen with her Brandon at bedside. Discharge Providers Provider Date of admission: 12/03/24 10:49 Discharge Date: 12/05/24 Primary care physician: Dr. Alvarado Discharge provider: Arvin Aguirre DO Summary Hospital Course Discharge Diagnosis: 1. Community-acquired pneumonia. 2. acute hypoxic respiratory failure due to 1 Hospital Course: This is a 39-year-old female who was admitted with acute hypoxemic respiratory failure in the setting of bilateral community-acquired bacterial pneumonia. After a couple of days she was able to be weaned from supplemental oxygen after initiation of ceftriaxone and atypical coverage with initially azithromycin which was changed to doxycycline on hospital day 1. With resolution of hypoxia, the patient felt much improved and wished to discharge home. She will continue on Augmentin for another 3 days after discharge for completion of antibiotic therapy for presumed bacterial pneumonia. No other changes to her home medications were recommended at the time of discharge. At the time of discharge the patient was ambulating on room air with O2 saturation between 92 and 95%. Time Spent with Patient Time spent: Greater than 30 minutes Exam Vital Signs (past 8 hours): - 12/05/24 12:00 Temperature 97.0 F L Pulse Rate 82 Respiratory Rate 14 Blood Pressure 102/63 Pulse Oximetry 94 Oxygen Flow Rate 1 Fraction of Inspired Oxygen 24 SaO2/FiO2 Ratio 387 Oxygen Delivery Method Nasal Cannula Oxygen Flow Rate 1 Narrative Exam Narrative: GENERAL: This is a well-nourished, well-developed patient, in no apparent distress CARDIOVASCULAR: Regular rate and rhythm without murmurs, gallops, or rubs. RESPIRATORY: Decreased breath sounds bilateral bases, increased right mid lung field coarse crackles. No wheezing or rhonchi. Objective Labs 12/03/24 08:05 12/03/24 08:05 [facility] Social History household members: spouse and children Smoking Status: Never smoker Discharge Plan Discharge Plan Patient Disposition: Home Provider Discharge Comment: You were admitted to the hospital with pneumonia, improved with antibiotics. Please finish entire course of antibiotics at home. Discharge orders & Medications Prescriptions: New amoxicillin-pot clavulanate 875-125 mg tablet 1 tab PO BID 3 Days Qty: 6 0RF Continued benzonatate 200 mg capsule 200 mg PO TID PRN (Reason: cough) Qty: 30 0RF guaifenesin 1,200 mg tablet extended release 12hr 1,200 mg PO Q12H Qty: 30 0RF acetaminophen 325 mg Tablet 325 mg PO QID PRN (Reason: Pain (Scale Score 1-3)) ibuprofen 200 mg Tablet 200 mg PO Q6H PRN (Reason: Pain, Mild) Follow up/Referrals: Jessica De Paz MD [Primary Care Provider] - Diet/Activity/Treatments Diet: Diet as Tolerated and Regular Activity: As tolerated, no restrictions Visit Report/Discharge Packet Instructions: Pneumonia-Adult, DI for Pneumonia -- Adult Stand Alone Forms: Patient Portal/API, Stroke Signs & Symptoms Discharge Data Primary Care Provider: Jessica De Paz
--- NOTE | 2024-12-05 15:41 | CM.DPNOTE ---
DCP note COMPANY ACCOUNTANT reviewed EMR per provider in morning rounds, likely dc today vs tomorrow. COMPANY ACCOUNTANT met with pt briefly. pt confirmed no need for work excuse letter at dc. denies other CM needs at this time. P: pt to dc home today, no identified barriers to safe dc home at this time,. spouse to transport home. no CM needs at this time, will continue to follow as needed LAYO Trejo
--- NOTE | 2024-12-05 16:57 | PM.PN.1 ---
Subjective Subjective Date Patient Seen: 12/04/24 Time Patient Seen: 11:00 Interval history: 39 F admitted with bilateral pneumonia. Still coughing, mild shortness of breath, improved O2 down to 1L at rest. Exam Vital Signs (past 8 hours): - 12/05/24 12:00 Temperature 97.0 F L Pulse Rate 82 Respiratory Rate 14 Blood Pressure 102/63 Pulse Oximetry 94 Oxygen Flow Rate 1 Fraction of Inspired Oxygen 24 SaO2/FiO2 Ratio 387 Oxygen Delivery Method Nasal Cannula Oxygen Flow Rate 1 Narrative Exam Narrative: GENERAL: This is a well-nourished, well-developed patient, in no apparent distress, appears fatigued, nasal cannula oxygen in place. HEAD: Atraumatic. Normocephalic. No temporal or scalp tenderness. EYES: Pupils equal round and reactive. Extraocular motions intact. No scleral icterus. No injection or drainage. ENT: Mucous membranes pink and moist. NECK: Trachea midline. No JVD, bruits or lymphadenopathy. Supple, nontender, no meningeal signs. CARDIOVASCULAR: Regular rate and rhythm without murmurs, gallops, or rubs. RESPIRATORY: Decreased breath sounds bilateral bases, increased right mid lung field coarse crackles. No wheezing or rhonchi. GASTROINTESTINAL: Abdomen soft, non-tender, nondistended. EXTREMITIES: No clubbing, cyanosis, or edema. BACK: Nontender without deformity or crepitance. No flank tenderness. NEUROLOGIC: Alert, oriented, speech fluent, full upper and lower motor strength, no focal deficits evident. DERMATOLOGIC: No rashes or skin lesions. Objective Labs 12/03/24 08:05 12/03/24 08:05 [facility] Social History household members: spouse and children Smoking Status: Never smoker Assessment & Plan Assessment & Plan narrative: 1. Community-acquired pneumonia. Continue IV ceftriaxone and change azithro to doxy. Follow cultures. Treat symptomatically. 2. acute hypoxic respiratory failure due to 1. Continue supplemental oxygen. DVT prophylaxis: Subcutaneous enoxaparin. Note recent travel history. Code status: Full code. Her surrogate decision maker is her Chris. Plan: -ceftriaxone, changed azithro to doxycycline -supplemental oxygen, maintain oxygen saturation greater than equal to 92% -symptomatic care, anxiolytics, mucolytics -enoxaparin 40 mg daily The patient is admitted inpatient status as he will require at least 2 midnights of inpatient level care. Discharge home once O2 is weaned off. Time-Based Coding :: [TOTAL MINUTES] spent with patient and on the chart (including review of chart, obtaining history, exam, reviewing outside data, placing orders, documenting exam and treatment plan, and counseling patient) on [DATE].
== END 2024-12-05 16:14 | disposition home or self-care (01) | DRG 193 ==
LOC: ED 10:49 → AC 10:50
PROVIDERS: Admitting Provider Internal Medicine; Emergency Provider Emergency Medicine; PCP Family Medicine; Referring Provider Emergency Medicine; Visit Provider Internal Medicine
DX: J15.9 Unspecified bacterial pneumonia (principal); J96.01 Acute respiratory failure with hypoxia; Z87.59 Personal history of other complications of pregnancy, childbirth and the puerperium; R05.1 Acute cough
CPT/HCPCS: 0241U; 36415; 71045; 71275; 80053; 81025; 82550; 83605; 84145; 84484; 85025; 85379; 87040; 94762; 96365; 99285; J0696; J1650; Q9967

== ENCOUNTER → 2024-12-12 12:23 | Outpatient (CLI) | payer OTHER, SELFPAY ==
[2024-12-03 11:45] VITALS: BMI 27.3
--- NOTE | 2024-12-12 12:26 | DI.RAD.S_ITS ---
PROCEDURE: XR CHEST 2V INDICATIONS: Personal history of pneumonia (recurrent) TECHNIQUE: 2 views of the chest were acquired. COMPARISON: [facility], CR, XR CHEST 1V, 12/03/2024, 8:23. FINDINGS: Surgical changes and devices: None. Lungs and pleura: Bilateral perihilar bronchial wall and interstitial thickening in the mid to lower lung zones. Decrease in the mid to lower lung bibasilar patchy opacities. No residual dense consolidation or pleural effusion. Mediastinum: Mediastinal contours are normal. Heart size is normal. Bones and chest wall: No suspicious bony abnormalities. Soft tissues appear unremarkable. IMPRESSION: Interval improvement in bilateral pneumonia with residual interstitial and bronchial wall thickening. Dictated by: Rosa Maria Pardo M.D. on 12/12/2024 at 23:26 Approved by: Rosa Maria Pardo M.D. on 12/12/2024 at 23:27
== END ==
PROVIDERS: PCP Family Medicine; Referring Provider Family Medicine; Visit Provider Family Medicine
DX: J18.9 Pneumonia, unspecified organism (principal)
CPT/HCPCS: 71046